=== PATIENT | female | born 1965 | race Caucasian/White ===

== ENCOUNTER 2021-03-20 07:59 | Outpatient (CLI) | payer OTHER | END 2021-03-20 08:00 | disposition home or self-care (01) | LOC: BICRAD 07:59 | PROVIDERS: ATTEND Internal Medicine Rheumatology | DX: N30.21 Other chronic cystitis with hematuria (principal); M46.1 Sacroiliitis, not elsewhere classified | CPT/HCPCS: 72202; 76770 ==